=== PATIENT | female | born 1980 | race Caucasian/White ===

== ENCOUNTER 2021-11-08 11:05 | Emergency (ER) | payer OTHER | END 2021-11-08 11:41 | disposition left against medical advice (07) | LOC: ER1 11:05 | DX: Z53.21 Procedure and treatment not carried out due to patient leaving prior to being seen by health care provider (principal) ==

== ENCOUNTER 2021-11-15 17:46 | Emergency (ER) | payer OTHER ==
[2021-11-15 19:24] LABS: HEMOGLOBIN 14.5 gm/dl (12.3-15.3); RED BLOOD COUNT 4.73 M/UL (4.00-5.10); WHITE BLOOD COUNT 5.8 K/UL (4.5-11.0)
[2021-11-15 19:54] LABS: BUN/CREATININE RATIO 7 (0-10)
[2021-11-15] MEDS ORDERED: PROVENTIL HFA6.7 GM INH (21:00)
[2021-11-15] MEDS ORDERED: PREDNISONE50 MG PO (21:00)
[2021-11-15] MEDS ORDERED: K-TAB ER10 MEQ PO (21:02)
== END 2021-11-15 21:26 | disposition home or self-care (01) ==
LOC: ER1 17:46
PROVIDERS: Physician Assistant
DX: J44.1 Chronic obstructive pulmonary disease with (acute) exacerbation (principal); E87.6 Hypokalemia; F17.200 Nicotine dependence, unspecified, uncomplicated; Z90.49 Acquired absence of other specified parts of digestive tract; Z90.89 Acquired absence of other organs; Z20.822 Contact with and (suspected) exposure to COVID-19
CPT/HCPCS: 71045; 80053; 82550; 82553; 83874; 84484; 85025; 94640; 94664; 94760; 96372; 99284; J2930; U0002

== ENCOUNTER 2021-11-15 23:59 | Emergency (ER) | payer OTHER ==
[~2021-11-15 23:59] MED LIST: K-TAB ER10 MEQ PO; PREDNISONE50 MG PO; PROVENTIL HFA6.7 GM INH
== END 2021-11-16 01:09 | disposition home or self-care (01) ==
LOC: ER1 23:59
DX: F41.9 Anxiety disorder, unspecified (principal); Z00.00 Encounter for general adult medical examination without abnormal findings; J44.9 Chronic obstructive pulmonary disease, unspecified
CPT/HCPCS: 99283

== ENCOUNTER 2021-12-25 01:20 | Inpatient (IN) | payer OTHER ==
[~2021-12-25] VITALS: Ht 154.9 cm; Wt 59.0 kg
[2021-12-25 02:02] LABS: HEMOGLOBIN 14.5 gm/dl (12.3-15.3); RED BLOOD COUNT 4.53 M/UL (4.00-5.10); WHITE BLOOD COUNT 6.2 K/UL (4.5-11.0)
[2021-12-25 02:24] LABS: BUN/CREATININE RATIO 8 (0-10)
[2021-12-25] MEDS ORDERED: CLARITIN-D 241 EACH PO (06:17)
[2021-12-25] MEDS ORDERED: LASIX 40 MG TAB40 MG PO (06:17)
[2021-12-25] MEDS ORDERED: KLONOPIN0.5 MG PO (06:20)
--- NOTE | 2021-12-25 19:25 | NUR ---
IT WAS JUST BROUGHT TO MY ATTENTION BY THE PATIENTS MOTHER TANI SHE HAS A HISTORY OF BIPOLAR AND SCHIZOPHRENIA. SHE HAS SPENT [facility] IN [facility]MENT CENTER IN [address] IN THE PAST MONTH. THE PROVIDER WAS CONTACTED AND MADE AWARE AND HER HOME MEDICATIONS WERE UPDATED TO REFLECT THE TREATMENT FOR THESE CONDITIONS.
[2021-12-25] MEDS ORDERED: SEROQUEL400 MG PO (23:08)
[2021-12-25] MEDS ORDERED: TRAZODONE HCL100 MG PO (23:09)
[2021-12-26] MEDS ORDERED: BUPRENORPHIN-N1 EACH SL (06:21)
[2021-12-26 10:01] LABS: BUN/CREATININE RATIO 14 (0-10)
[2021-12-26] MEDS ORDERED: LAMOTRIGINE100 MG PO (17:41)
[2021-12-26] MEDS ORDERED: BACTROBAN OINT22 GM TOP (17:42)
[2021-12-26] MEDS ORDERED: IPRAT-ALBUT 0.5-3 ML INH (17:42)
[2021-12-27 06:48] LABS: RED BLOOD COUNT 4.2 M/UL (4.00-5.10); WHITE BLOOD COUNT 6.1 K/UL (4.5-11.0)
[2021-12-27 07:11] LABS: BUN/CREATININE RATIO 20 (0-10)
[2021-12-28] MEDS ORDERED: MEDROL DOSEPAK 24 MG PO (08:28)
[2021-12-28] MEDS ORDERED: AZITHROMYCIN250 MG PO (08:28)
== END 2021-12-28 11:22 | disposition home or self-care (01) | DRG 189 ==
LOC: ER1 01:20 → CDU 04:48 → M/S 04:48
PROVIDERS: Family Medicine; Internal Medicine Infectious Disease; Physician Assistant; ADMIT Internal Medicine
DX: J96.22 Acute and chronic respiratory failure with hypercapnia (principal); J44.1 Chronic obstructive pulmonary disease with (acute) exacerbation; F11.20 Opioid dependence, uncomplicated; B18.2 Chronic viral hepatitis C; F19.10 Other psychoactive substance abuse, uncomplicated; Z20.822 Contact with and (suspected) exposure to COVID-19; F41.9 Anxiety disorder, unspecified; E87.6 Hypokalemia; K59.00 Constipation, unspecified; F32.A Depression, unspecified; J96.21 Acute and chronic respiratory failure with hypoxia; Z87.891 Personal history of nicotine dependence; Z83.3 Family history of diabetes mellitus; Z82.49 Family history of ischemic heart disease and other diseases of the circulatory system; Z99.81 Dependence on supplemental oxygen
CPT/HCPCS: 0240U; 36600; 71045; 80048; 80053; 80307; 82550; 82553; 82803; 83036; 83605; 83735; 83880; 84100; 84132; 84439; 84443; 84484; 85025; 86140; 87040; 93005; 94640; 94664; 94760; 96374; 96375; 96376; 99285; C9113; G0378; J2920; J2930

== ENCOUNTER 2022-01-04 21:43 | Emergency (ER) | payer OTHER ==
[~2022-01-04 21:43] MED LIST changes: +AZITHROMYCIN250 MG PO; +BACTROBAN OINT22 GM TOP; +BUPRENORPHIN-N1 EACH SL; +CLARITIN-D 241 EACH PO; +IPRAT-ALBUT 0.5-3 ML INH; +KLONOPIN0.5 MG PO; +LAMOTRIGINE100 MG PO; +LASIX 40 MG TAB40 MG PO; +MEDROL DOSEPAK 24 MG PO; +SEROQUEL400 MG PO; +TRAZODONE HCL100 MG PO
[2022-01-04 22:21] LABS: HEMOGLOBIN 15.4 gm/dl (12.3-15.3); RED BLOOD COUNT 4.79 M/UL (4.00-5.10); WHITE BLOOD COUNT 11.9 K/UL (4.5-11.0)
[2022-01-04 22:42] LABS: BUN/CREATININE RATIO 19 (0-10)
== END 2022-01-05 21:08 | disposition short-term general hospital (02) ==
LOC: ER1 21:43
PROVIDERS: Family Medicine
DX: F60.0 Paranoid personality disorder (principal); Z20.822 Contact with and (suspected) exposure to COVID-19
CPT/HCPCS: 80053; 80307; 81001; 84703; 85025; 93005; 94664; 94760; 96374; 96375; 96376; 99285; G0480; J2060; J2930; U0002

== ENCOUNTER 2022-01-16 08:37 | Emergency (ER) | payer OTHER ==
[~2022-01-16 08:37] MED LIST changes: +K-TAB ER20 MEQ PO
[2022-01-16 12:30] LABS: RED BLOOD COUNT 4.15 M/UL (4.00-5.10); WHITE BLOOD COUNT 12.9 K/UL (4.5-11.0)
[2022-01-16 12:42] LABS: HEMOGLOBIN 13.1 gm/dl (12.3-15.3)
[2022-01-16 12:50] LABS: BUN/CREATININE RATIO 14 (0-10)
== END 2022-01-17 01:16 | disposition short-term general hospital (02) ==
LOC: ER1 08:37
PROVIDERS: Family Medicine
DX: R45.851 Suicidal ideations (principal); R45.850 Homicidal ideations; J44.9 Chronic obstructive pulmonary disease, unspecified; J96.11 Chronic respiratory failure with hypoxia; Z20.822 Contact with and (suspected) exposure to COVID-19
CPT/HCPCS: 36600; 71045; 80053; 80307; 81001; 82550; 82553; 82803; 83605; 83690; 83735; 83880; 84439; 84443; 84484; 84703; 85025; 93005; 94640; 94664; 99285; G0480; U0002

== ENCOUNTER 2022-02-02 14:29 | Emergency (ER) | payer OTHER ==
[2022-02-02 15:25] LABS: HEMOGLOBIN 14.7 gm/dl (12.3-15.3); RED BLOOD COUNT 4.62 M/UL (4.00-5.10); WHITE BLOOD COUNT 5.8 K/UL (4.5-11.0)
[2022-02-02 15:53] LABS: BUN/CREATININE RATIO 16 (0-10)
[2022-02-02] MEDS ORDERED: CETIRIZINE HCL10 MG PO (17:28)
[2022-02-02] MEDS ORDERED: IPRAT-ALBUT 0.5-3 ML INH (17:28)
[2022-02-02] MEDS ORDERED: PREDNISONE20 MG PO (17:28)
== END 2022-02-02 18:57 | disposition home or self-care (01) ==
LOC: ER1 14:29
PROVIDERS: Family Medicine
DX: J44.1 Chronic obstructive pulmonary disease with (acute) exacerbation (principal); J96.92 Respiratory failure, unspecified with hypercapnia; J96.91 Respiratory failure, unspecified with hypoxia; F41.9 Anxiety disorder, unspecified; E87.6 Hypokalemia; F17.200 Nicotine dependence, unspecified, uncomplicated
CPT/HCPCS: 36600; 71045; 80053; 82550; 82553; 82803; 83605; 83880; 84484; 85025; 93005; 94664; 99285

== ENCOUNTER 2022-02-15 12:49 | Inpatient (IN) | payer OTHER ==
[~2022-02-15] VITALS: Ht 154.9 cm; Wt 54.4 kg
[~2022-02-15 12:49] MED LIST changes: +CETIRIZINE HCL10 MG PO; +PREDNISONE20 MG PO
[2022-02-15 14:45] LABS: BUN/CREATININE RATIO 14 (0-10)
[2022-02-15 14:57] LABS: HEMOGLOBIN 15.7 gm/dl (12.3-15.3); WHITE BLOOD COUNT 8.2 K/UL (4.5-11.0)
[2022-02-15] MEDS ORDERED: CARDIZEM CD180 MG PO (17:20)
[2022-02-15] MEDS ORDERED: NALOXONE HCL4 MG (17:21)
[2022-02-15] MEDS ORDERED: OMEPRAZOLE40 MG PO (17:21)
[2022-02-15] MEDS ORDERED: SYMBICORT 16010.2 GM INH (17:21)
[2022-02-15] MEDS ORDERED: MIRALAX17 GM PO (17:21)
[2022-02-15] MEDS ORDERED: PROAIR HFA8.5 GM INH (17:23)
[2022-02-16 08:53] LABS: BUN/CREATININE RATIO 22 (0-10)
[2022-02-16 09:37] LABS: HEMOGLOBIN 14.9 gm/dl (12.3-15.3); RED BLOOD COUNT 4.73 M/UL (4.00-5.10); WHITE BLOOD COUNT 5.5 K/UL (4.5-11.0)
--- NOTE | 2022-02-16 16:53 | NUR ---
02/16/22 1650 PT KEEPS ADJUSTING OXYGEN FLOW RATE, INSTRUCTED PATIENT TO LEAVE AT 4L/NC. VERBALIZED UNDERSTANDING
[2022-02-17 06:44] LABS: HEMOGLOBIN 15.2 gm/dl (12.3-15.3); RED BLOOD COUNT 4.87 M/UL (4.00-5.10)
[2022-02-17 06:45] LABS: WHITE BLOOD COUNT 10.4 K/UL (4.5-11.0)
[2022-02-17 07:05] LABS: BUN/CREATININE RATIO 25 (0-10)
--- NOTE | 2022-02-17 09:42 | NUR ---
02/17/22 0984 PT REFUSES TO WEAR TELE MONTIOR DR RESENDIZ OK WITH DC AND CONT POX ONLY. REINFORCED TO KEEP OXYGEN AT 4 L/NC, RMAINS ANXIOUS.
[2022-02-18] MEDS ORDERED: LEVOFLOXACIN500 MG PO (10:02)
[2022-02-18] MEDS ORDERED: MEDROL DOSEPAK 24 MG PO (10:02)
[2022-02-18] MEDS ORDERED: IPRAT-ALBUT 0.5-3 ML INH (10:03)
[2022-02-18 10:38] LABS: HEMOGLOBIN 14.5 gm/dl (12.3-15.3); RED BLOOD COUNT 4.62 M/UL (4.00-5.10)
[2022-02-18 10:44] LABS: WHITE BLOOD COUNT 6.4 K/UL (4.5-11.0)
[2022-02-18 11:41] LABS: BUN/CREATININE RATIO 28 (0-10)
== END 2022-02-18 14:36 | DRG 193 ==
LOC: ER1 12:49 → CDU 16:43 → M/S 16:43
PROVIDERS: ADMIT Internal Medicine
DX: J18.9 Pneumonia, unspecified organism (principal); J96.21 Acute and chronic respiratory failure with hypoxia; J96.22 Acute and chronic respiratory failure with hypercapnia; J44.0 Chronic obstructive pulmonary disease with (acute) lower respiratory infection; F11.20 Opioid dependence, uncomplicated; J44.1 Chronic obstructive pulmonary disease with (acute) exacerbation; Q24.0 Dextrocardia; Z20.822 Contact with and (suspected) exposure to COVID-19; F15.10 Other stimulant abuse, uncomplicated; F32.A Depression, unspecified; F41.9 Anxiety disorder, unspecified; R53.81 Other malaise; I10 Essential (primary) hypertension; B18.2 Chronic viral hepatitis C; G89.29 Other chronic pain; Z99.81 Dependence on supplemental oxygen; Z90.89 Acquired absence of other organs; Z83.3 Family history of diabetes mellitus; Z82.49 Family history of ischemic heart disease and other diseases of the circulatory system; Z98.890 Other specified postprocedural states; Z87.891 Personal history of nicotine dependence; Z79.899 Other long term (current) drug therapy
CPT/HCPCS: 0240U; 36415; 36600; 71045; 71046; 80048; 80053; 80307; 82550; 82553; 82803; 83605; 83690; 83735; 83880; 84484; 84702; 85025; 85027; 85379; 85652; 86140; 93005; 94640; 94664; 94760; 96372; 96374; 96375; 96376; 97161; 99285; G0378; J0696; J1650; J2930; Q0177

== ENCOUNTER 2022-03-16 02:55 | Emergency (ER) | payer OTHER ==
[~2022-03-16 02:55] MED LIST changes: +CARDIZEM CD180 MG PO; +LEVOFLOXACIN500 MG PO; +MIRALAX17 GM PO; +NALOXONE HCL4 MG; +OMEPRAZOLE40 MG PO; +PROAIR HFA8.5 GM INH; +SYMBICORT 16010.2 GM INH
[2022-03-16 03:42] LABS: HEMOGLOBIN 14.7 gm/dl (12.3-15.3); RED BLOOD COUNT 4.65 M/UL (4.00-5.10); WHITE BLOOD COUNT 4.7 K/UL (4.5-11.0)
[2022-03-16 03:59] LABS: BUN/CREATININE RATIO 17 (0-10)
== END 2022-03-16 06:52 | disposition home or self-care (01) ==
LOC: ER1 02:55
PROVIDERS: Family Medicine
DX: J44.9 Chronic obstructive pulmonary disease, unspecified (principal); G47.00 Insomnia, unspecified; E87.6 Hypokalemia; J96.11 Chronic respiratory failure with hypoxia; J96.02 Acute respiratory failure with hypercapnia; F17.200 Nicotine dependence, unspecified, uncomplicated
CPT/HCPCS: 36600; 71045; 80053; 82550; 82553; 82803; 83605; 84484; 85025; 93005; 99285; G0480; J7030

== ENCOUNTER 2022-03-27 03:56 | Inpatient (IN) | payer OTHER ==
[~2022-03-27] VITALS: Ht 154.9 cm; Wt 55.8 kg
[2022-03-27 04:36] LABS: HEMOGLOBIN 13.3 gm/dl (12.3-15.3); RED BLOOD COUNT 4.24 M/UL (4.00-5.10); WHITE BLOOD COUNT 3.6 K/UL (4.5-11.0)
[2022-03-27 05:03] LABS: BUN/CREATININE RATIO 12 (0-10)
[2022-03-27] MEDS ORDERED: IPRAT-ALBUT 0.5-3 ML INH (09:46)
[2022-03-27] MEDS ORDERED: LORATADINE-D 21 EACH PO (09:47)
[2022-03-28 07:44] LABS: HEMOGLOBIN 12.7 gm/dl (12.3-15.3); RED BLOOD COUNT 4.12 M/UL (4.00-5.10); WHITE BLOOD COUNT 5.6 K/UL (4.5-11.0)
[2022-03-28 07:54] LABS: BUN/CREATININE RATIO 18 (0-10)
--- NOTE | 2022-03-28 10:34 | NUR ---
received phone call from telemetry and patient pulse goes up to 140's. patient has been up using the bathroom. patient have new order diltizem and given to patient. dr. sutton aware of this.
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
--- NOTE | 2022-03-28 12:14 | NUR ---
PATIENT O2 SATS DROP TO 84% ON ROOM AIR.
--- NOTE | 2022-03-28 13:39 | NUR ---
Pt refusing telemetry. MD Karimi notified and said to D/C via telephone order with readback.
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
--- NOTE | 2022-03-28 14:42 | NUR ---
was informed by patti case liner to wait for gerald to call me for report
--- NOTE | 2022-03-28 15:19 | NUR ---
olap started at this time
--- NOTE | 2022-03-28 17:41 | NUR ---
Pt is resting comfortably at the moment. Two security guards present and suicide precautions in place.
[2022-03-29 06:58] LABS: HEMOGLOBIN 13.5 gm/dl (12.3-15.3); RED BLOOD COUNT 4.25 M/UL (4.00-5.10); WHITE BLOOD COUNT 6.7 K/UL (4.5-11.0)
[2022-03-29 07:37] LABS: BUN/CREATININE RATIO 29 (0-10)
[2022-03-29] MEDS ORDERED: MEDROL4 MG PO (08:18)
[2022-03-29] MEDS ORDERED: LEVOFLOXACIN500 MG PO (08:18)
[2022-03-29] MEDS ORDERED: [UNRECOGNIZED DRUG - OTHER] (08:18)
--- NOTE | 2022-03-29 10:39 | NUR ---
Pt has 1:1 sitter by door, close to nurses station, red light on, suicide precautions in place. MD aware of situation.
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
--- NOTE | 2022-03-29 14:04 | NUR ---
olap evaluation finished spoken to evaluating nurse and she stated she will make her recommendations.
--- NOTE | 2022-03-29 14:42 | NUR ---
patient outburst episode and when asked what was going on patient stated she wanted her 3 medications she was prescribed before that helps her sleep and eat. she stated it was klonopin, seroquel and lamactil and when she takes the above medicine it helps her really well. spoken to patient and informed her that i will let her md knows about it. patient seems satisfied. reported to dr. sutton of the above and he stated he cant prescribed the above medications and for the patient to go and see her PCP. Informed him that Rufus waiting for Olap written recommendation. dr. sutton stated patient is ready for discharge, not to even call him for Olap recommendation. Visual Artist- Ivonne aware and calling [facility] and will talk to Dr. Sutton.
--- NOTE | 2022-03-31 18:02 | NUR ---
lab called with Positive Blood cultures today and i spoke with Dr Karimi and let him know. No further orders noted or requested
== END 2022-03-29 17:25 | disposition home or self-care (01) | DRG 190 ==
LOC: ER1 03:56 → M/S 05:37 → CDU 05:37 → PROG CARE 07:55 → M/S 21:12
PROVIDERS: Internal Medicine; Physician Assistant; ADMIT Internal Medicine
DX: J44.1 Chronic obstructive pulmonary disease with (acute) exacerbation (principal); J96.22 Acute and chronic respiratory failure with hypercapnia; J18.9 Pneumonia, unspecified organism; J96.21 Acute and chronic respiratory failure with hypoxia; Z20.822 Contact with and (suspected) exposure to COVID-19; R45.851 Suicidal ideations; F11.20 Opioid dependence, uncomplicated; J44.0 Chronic obstructive pulmonary disease with (acute) lower respiratory infection; F19.10 Other psychoactive substance abuse, uncomplicated; F10.20 Alcohol dependence, uncomplicated; K59.00 Constipation, unspecified; E87.6 Hypokalemia; J20.8 Acute bronchitis due to other specified organisms; F17.210 Nicotine dependence, cigarettes, uncomplicated; B18.2 Chronic viral hepatitis C; R45.1 Restlessness and agitation; Z91.14 Patient's other noncompliance with medication regimen; Z99.81 Dependence on supplemental oxygen; Z98.890 Other specified postprocedural states; Z82.49 Family history of ischemic heart disease and other diseases of the circulatory system; Z83.3 Family history of diabetes mellitus
CPT/HCPCS: 36415; 36600; 71045; 71250; 80053; 80307; 82550; 82553; 82693; 82803; 83036; 83605; 83735; 83880; 84100; 84132; 84484; 85025; 85027; 85610; 85730; 86140; 87040; 93005; 94640; 94664; 94760; 96374; 96375; 99285; C9113; G0480; J0696; J1650; J2405; J2920; J2930; U0002

== ENCOUNTER 2022-05-17 09:38 | Inpatient (IN) | payer OTHER ==
[~2022-05-17] VITALS: Ht 154.9 cm; Wt 57.3 kg
[~2022-05-17 09:38] MED LIST changes: +LORATADINE-D 21 EACH PO; +MEDROL4 MG PO; +[UNRECOGNIZED DRUG - OTHER]
[2022-05-17 10:26] LABS: HEMOGLOBIN 14.5 gm/dl (12.3-15.3); RED BLOOD COUNT 4.51 M/UL (4.00-5.10); WHITE BLOOD COUNT 5.9 K/UL (4.5-11.0)
[2022-05-17 11:05] LABS: BUN/CREATININE RATIO 11 (0-10)
[2022-05-17] MEDS ORDERED: LAMOTRIGINE25 MG PO (12:52)
[2022-05-18 08:19] LABS: HEMOGLOBIN 14.1 gm/dl (12.3-15.3); RED BLOOD COUNT 4.46 M/UL (4.00-5.10)
[2022-05-18 08:23] LABS: WHITE BLOOD COUNT 10.2 K/UL (4.5-11.0)
[2022-05-18 08:53] LABS: BUN/CREATININE RATIO 18 (0-10)
[2022-05-19 10:41] LABS: HEMOGLOBIN 14.7 gm/dl (12.3-15.3); RED BLOOD COUNT 4.57 M/UL (4.00-5.10)
[2022-05-19 11:04] LABS: BUN/CREATININE RATIO 41 (0-10)
[2022-05-20 08:50] LABS: HEMOGLOBIN 13.7 gm/dl (12.3-15.3); RED BLOOD COUNT 4.28 M/UL (4.00-5.10)
[2022-05-20 08:51] LABS: WHITE BLOOD COUNT 7.5 K/UL (4.5-11.0)
[2022-05-20 09:26] LABS: BUN/CREATININE RATIO 36 (0-10)
--- NOTE | 2022-05-21 08:17 | NUR ---
PATIENT STANDING UP ON ROOM HITTING THE WINDOW GLASS WITH HER HAND INFORMED PATIENT TO SIT DOWN AND THAT SHE WOULD HURT HERSELF DOING THAT SHE SAT DOWN IN THE CHAIR AND SAID SHE WAS MAD.
[2022-05-21 08:40] LABS: HEMOGLOBIN 14.9 gm/dl (12.3-15.3); RED BLOOD COUNT 4.62 M/UL (4.00-5.10); WHITE BLOOD COUNT 7.8 K/UL (4.5-11.0)
[2022-05-21 09:10] LABS: BUN/CREATININE RATIO 26 (0-10)
--- NOTE | 2022-05-21 10:34 | NUR ---
PATIENT UPSET USING FOUL LANGUAGE AND THROWING HER TELEMETRY BOX. INFORMED PATIENT SHE COULDNT DO THAT SHE WOULD HURT HERSELF OR OTHERS. PATIENT QUIT TALKING AND STARTED ROLLING HER EYES. PATIENT ALSO STOPPED HER IV FLUIDS AGAINST MEDICAL ADVICE.
[2022-05-21] MEDS ORDERED: LEVOFLOXACIN500 MG PO (12:19)
[2022-05-21] MEDS ORDERED: DIFLUCAN150 MG PO (12:19)
[2022-05-21] MEDS ORDERED: IPRAT-ALBUT 0.5-3 ML INH (12:19)
[2022-05-21] MEDS ORDERED: MEDROL DOSEPAK 24 MG PO (12:19)
[2022-05-21] MEDS ORDERED: SYMBICORT 16010.2 GM INH (12:28)
[2022-05-21] MEDS ORDERED: SPIRIVA18 MCG INH (12:28)
== END 2022-05-21 13:45 | disposition home or self-care (01) | DRG 193 ==
LOC: ER1 09:38 → PROG CARE 11:11 → CDU 11:11 → M/S 11:11 → PROG CARE 18:02 → M/S 05-18 21:25
PROVIDERS: Emergency Medicine; Internal Medicine; Physician Assistant Medical; ADMIT Internal Medicine
PROC: 5A09357 Assistance with Respiratory Ventilation, Less than 24 Consecutive Hours, Continuous Positive Airway Pressure (ICD-10-PCS; principal; 2022-05-17)
DX: J18.9 Pneumonia, unspecified organism (principal); J96.21 Acute and chronic respiratory failure with hypoxia; J96.22 Acute and chronic respiratory failure with hypercapnia; J44.1 Chronic obstructive pulmonary disease with (acute) exacerbation; J44.0 Chronic obstructive pulmonary disease with (acute) lower respiratory infection; F19.10 Other psychoactive substance abuse, uncomplicated; Z20.822 Contact with and (suspected) exposure to COVID-19; G89.4 Chronic pain syndrome; F41.9 Anxiety disorder, unspecified; F32.A Depression, unspecified; B18.2 Chronic viral hepatitis C; M54.9 Dorsalgia, unspecified; Z90.89 Acquired absence of other organs; Z91.14 Patient's other noncompliance with medication regimen; Z79.899 Other long term (current) drug therapy; Z98.890 Other specified postprocedural states; Z87.891 Personal history of nicotine dependence; Z83.3 Family history of diabetes mellitus; Z82.49 Family history of ischemic heart disease and other diseases of the circulatory system
CPT/HCPCS: 0240U; 36415; 36600; 71045; 80048; 80053; 82550; 82553; 82803; 83605; 83735; 83880; 84484; 84703; 85025; 85027; 87040; 93005; 94640; 94660; 94664; 94760; 96374; 96375; 99285; J0456; J0696; J1650; J1885; J2405; J2920; J2930; J7030

== ENCOUNTER 2022-05-22 05:39 | Observation (INO) | payer OTHER ==
[~2022-05-22] VITALS: Ht 154.9 cm; Wt 60.8 kg
[~2022-05-22 05:39] MED LIST changes: +DIFLUCAN150 MG PO; +LAMOTRIGINE25 MG PO; +SPIRIVA18 MCG INH
[2022-05-22 07:16] LABS: HEMOGLOBIN 15.9 gm/dl (12.3-15.3); RED BLOOD COUNT 4.9 M/UL (4.00-5.10)
[2022-05-22 07:18] LABS: WHITE BLOOD COUNT 11.2 K/UL (4.5-11.0)
[2022-05-22 07:55] LABS: BUN/CREATININE RATIO 22 (0-10)
[2022-05-22 09:15] LABS: BORDETELLA PARAPERTUSSIS Not Detected (Not Detectd); BORDETELLA PERTUSSIS Not Detected (Not Detectd); CHLAMYDIA PNEUMONIAE Not Detected (Not Detectd); CORONAVIRUS HKU1 Not Detected (Not Detectd); CORONAVIRUS NL63 Not Detected (Not Detectd); CORONAVIRUS OC43 Not Detected (Not Detectd); CORONOAVIRUS 229E Not Detected (Not Detectd); HUMAN METAPNEUMOVIRUS Not Detected (Not Detectd); HUMAN RHINOVIRUS/ENTEROVIRUS Not Detected (Not Detectd); INFLUENZA A Not Detected (Not Detectd); INFLUENZA B Not Detected (Not Detectd); MYCOPLASMA PNEUMONIAE Not Detected (Not Detectd); PARAINFLUENZA VIRUS 1 Not Detected (Not Detectd); PARAINFLUENZA VIRUS 2 Not Detected (Not Detectd); PARAINFLUENZA VIRUS 3 Not Detected (Not Detectd); PARAINFLUENZA VIRUS 4 Not Detected (Not Detectd); RESPIRATORY SYNCYTIAL VIRUS Not Detected (Not Detectd)
[2022-05-22 11:26] LABS: SARS-CoV-2 NOT DETECTED (Not Detectd)
[2022-05-23 06:04] LABS: HEMOGLOBIN 15.1 gm/dl (12.3-15.3); RED BLOOD COUNT 4.65 M/UL (4.00-5.10); WHITE BLOOD COUNT 8.7 K/UL (4.5-11.0)
[2022-05-23 07:07] LABS: BUN/CREATININE RATIO 29 (0-10)
[2022-05-24 08:29] LABS: HEMOGLOBIN 15.4 gm/dl (12.3-15.3); RED BLOOD COUNT 4.77 M/UL (4.00-5.10); WHITE BLOOD COUNT 9.1 K/UL (4.5-11.0)
[2022-05-24 09:00] LABS: BUN/CREATININE RATIO 41 (0-10)
[2022-05-24] MEDS ORDERED: IPRAT-ALBUT 0.5-3 ML INH (10:46)
[2022-05-24] MEDS ORDERED: MEDROL DOSEPAK 24 MG PO ×2 (10:46→10:48)
[2022-05-24] MEDS ORDERED: SYMBICORT 16010.2 GM INH (10:46)
[2022-05-24] MEDS ORDERED: QUETIAPINE FUM100 MG PO (10:46)
[2022-05-24] MEDS ORDERED: FUROSEMIDE40 MG PO (10:46)
[2022-05-24] MEDS ORDERED: SPIRIVA18 MCG INH (10:46)
[2022-05-24] MEDS ORDERED: LEVOFLOXACIN500 MG PO ×2 (10:46→10:48)
--- NOTE | 2022-05-24 11:51 | NUR ---
RN VERIFIED WITH DR. HUANG THAT PATIENT'S EKG WAS NORMAL AND PATIENT COULD BE DISCHARGED. MD ORDERED RN TO CONTINUE WITH DISCHARGE. PATIENT REQUIRES [facility] FOR TRANSPORT AND OXYGEN TANK FOR RIDE HOME. MD, POLICE DEPARTMENT SECRETARY, AND CATH LABORATORY TECHNICIAN AWARE.
[2022-05-24] MEDS ORDERED: DOCUSATE SODIU100 MG PO (12:32)
[2022-05-24] MEDS ORDERED: PROBIOTIC1 EACH PO (12:32)
--- NOTE | 2022-05-24 13:10 | NUR ---
SENT WITH HOSPITAL OXYGEN TANK, [facility] TO REPLACE.
[2022-05-25 12:15] LABS: ORGANISM ID Not indicated. (.); SPECIMEN SOURCE Urine (.); STREPTOCOCCUS PNEUMONIAE AG Negative (Negative)
== END 2022-05-24 13:11 | disposition home or self-care (01) ==
LOC: ER1 05:39 → M/S 11:52 → CDU 11:52 → M/S 16:12
PROVIDERS: Internal Medicine; Physician Assistant; Physician Assistant Medical; ADMIT Internal Medicine
DX: J44.1 Chronic obstructive pulmonary disease with (acute) exacerbation (principal); J96.21 Acute and chronic respiratory failure with hypoxia; J96.22 Acute and chronic respiratory failure with hypercapnia; R00.0 Tachycardia, unspecified; F19.11 Other psychoactive substance abuse, in remission; F41.9 Anxiety disorder, unspecified; F32.A Depression, unspecified; Z91.14 Patient's other noncompliance with medication regimen; Z99.81 Dependence on supplemental oxygen; Z87.891 Personal history of nicotine dependence; Z79.51 Long term (current) use of inhaled steroids; Z79.899 Other long term (current) drug therapy; Z86.19 Personal history of other infectious and parasitic diseases
CPT/HCPCS: 36415; 36600; 71045; 80048; 80053; 81001; 82550; 82553; 82803; 83605; 83735; 84484; 85025; 85027; 87040; 87278; 87633; 87899; 93005; 94640; 94664; 94667; 94668; 94760; 96374; 96375; 96376; 99285; G0378; J0456; J0692; J0696; J1956; J2405; J2920; J2930; J7030; J7050; Q0177

== ENCOUNTER 2022-06-05 01:19 | Emergency (ER) | payer OTHER ==
[~2022-06-05 01:19] MED LIST changes: +DOCUSATE SODIU100 MG PO; +FUROSEMIDE40 MG PO; +PROBIOTIC1 EACH PO; +QUETIAPINE FUM100 MG PO
[2022-06-05 02:31] LABS: HEMOGLOBIN 15.3 gm/dl (12.3-15.3); RED BLOOD COUNT 4.7 M/UL (4.00-5.10)
[2022-06-05 02:51] LABS: BUN/CREATININE RATIO 17 (0-10)
[2022-06-05] MEDS ORDERED: LEVOFLOXACIN750 MG PO (03:17)
[2022-06-05] MEDS ORDERED: PREDNISONE50 MG PO (03:17)
[2022-06-05] MEDS ORDERED: ALBUTEROL2.5 MG/3 M INH (03:17)
[2022-06-05] MEDS ORDERED: IPRAT-ALBUT 0.5-3 ML INH (03:17)
== END 2022-06-05 17:30 | disposition home or self-care (01) ==
LOC: ER1 01:19
PROVIDERS: Emergency Medicine
DX: J44.1 Chronic obstructive pulmonary disease with (acute) exacerbation (principal); R00.0 Tachycardia, unspecified; Z20.822 Contact with and (suspected) exposure to COVID-19; Z79.899 Other long term (current) drug therapy
CPT/HCPCS: 71045; 80048; 80307; 81001; 84484; 85025; 86140; 93005; 94664; 96374; 99285; J2930; U0002

== ENCOUNTER 2022-06-07 04:18 | Emergency (ER) | payer OTHER ==
[~2022-06-07 04:18] MED LIST changes: +ALBUTEROL2.5 MG/3 M INH; +LEVOFLOXACIN750 MG PO
[2022-06-07 05:49] LABS: BUN/CREATININE RATIO 15 (0-10)
[2022-06-07 06:04] LABS: RED BLOOD COUNT 4.06 M/UL (4.00-5.10); WHITE BLOOD COUNT 7.7 K/UL (4.5-11.0)
== END 2022-06-07 11:35 | disposition home or self-care (01) ==
LOC: ER1 04:18
PROVIDERS: Family Medicine
DX: J96.11 Chronic respiratory failure with hypoxia (principal); J44.9 Chronic obstructive pulmonary disease, unspecified; F41.9 Anxiety disorder, unspecified
CPT/HCPCS: 36600; 51701; 71045; 80053; 81001; 82550; 82553; 82803; 83605; 84484; 85025; 93005; 94664; 96372; 99285; J2930